=== PATIENT | male | born 1960 | race Caucasian/White ===

== ENCOUNTER 2020-01-04 00:22 | Emergency (ER) | payer MEDICARE, OTHER ==
[~2020-01-04] VITALS: Ht 185.4 cm; Wt 122.5 kg
== END 2020-01-04 03:03 | disposition home or self-care (01) ==
LOC: ER 00:22
DX: S01.81XA Laceration without foreign body of other part of head, initial encounter (principal); F10.129 Alcohol abuse with intoxication, unspecified; F17.210 Nicotine dependence, cigarettes, uncomplicated; W18.30XA Fall on same level, unspecified, initial encounter
CPT/HCPCS: 70450; 72125; 99284-25